=== PATIENT | male | born 1995 | race Caucasian/White ===

== ENCOUNTER 2019-03-22 12:20 | Emergency (ER) | payer MEDICAID, SELFPAY ==
[2019-03-22 12:21] VITALS: BP 165/106; PULSE 109; RESP 16; TEMP 36.6; O2SAT 99; BMI 29.8
--- NOTE | 2019-03-22 12:58 | CT_ITS ---
STUDY: CT BRAIN WITHOUT CONTRAST REASON FOR EXAM: Male, 23 years old. Injury to the right side of the skull. RADIATION DOSAGE (If Supplied By Facility): CTDIvol = ( 44.99 ) mGy, DLP = ( 829.85 ) mGycm TECHNIQUE: Transaxial CT imaging of the brain was performed without administration of intravenous contrast material. Individualized dose optimization techniques were used for this CT. COMPARISON: No relevant priors. FINDINGS: Normal soft tissue structures. Normal calvarium. Normal size ventricles and extra-axial spaces for the patient's age. Normal white matter tracts of the cerebral hemispheres. Normal basal ganglia and thalami. Normal brainstem. Normal cerebellum. There is no intracranial hemorrhage. There are no findings of an acute ischemic infarction. Normal visualized paranasal sinuses. CT/Brain/Head without Contrast IMPRESSION: Normal unenhanced CT scan of the brain. Electronically Signed: Yann Allen, at 13:26 EDT , Service support ,
--- NOTE | 2019-03-22 13:04 | ED.VIS.GEN ---
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 [employer], indicates he was in the shower yesterday inadvertently stood up suddenly struck his head against a ceramic rack in the shower, he had no LOC he had no change in vision no numbness weakness paresthesias he has persistent complaints of head pain where he struck this rack no other complaints no past history Past Medical History - Allergies and Home Meds Allergies/Adverse Reactions: Allergies No Known Allergies Allergy (Verified 03/22/19 12:23) Primary Care Physician: Anderson Cabezas [NON-STAFF] - NOT,KADE [NON-STAFF] - Past Medical History: - Smoking Status: Never smoker Review of Systems ROS: - Denies a past history General: Reports: - - Head injury only. Denies: Chills, Fever, Sweats Eyes: Denies: Visual changes - bilaterally, Diplopia ENT: Denies: Rhinorrhea, Sore throat Cardiovascular: Denies: Chest pain, Palpitations Respiratory: Denies: Dyspnea, Cough, Dyspnea on exertion Gastrointestinal: Denies: Abdominal pain, Nausea, Vomiting, Diarrhea, Melena, Hematochezia Genitourinary: Denies: Dysuria, Hematuria, Frequency Musculoskeletal: Denies: Back pain, Extremity Pain Skin: Denies: Rash, Wounds Neurological: Denies: Headache, Weakness, Numbness Physical Exam Vital Signs/Narrative: Vital Signs Temp Pulse Resp BP Pulse Ox 03/22/19 12:21 97.8 F 109 H 16 165/106 H 99 General: Well nourished, Well developed, No Acute Distress Head: Normocephalic, - - To the top parietal right area there is about an area fingertip that he complains of discomfort to there is no crepitus subcu air the rest of the head exam HEENT exam neck exam neurologic exam in general medical exam are entirely unremarkable his gait strong steady and stable he is awake and alert his mental functioning is normal his NIH is 0 his GCS is 15 Eyes: Perrl, EOMI ENT: Moist mucous membranes, No rhinorrhea Neck: Supple, Nontender Cardiovascular: Regular rate, Regular rhythm, No murmurs Respiratory: No distress, CTA bilaterally, Chest nontender Abdomen: Soft, Nontender, Nondistended, Normal bowel sounds Back: Nontender, Normal Inspection Extremities: Nontender, No edema Skin: Normal color, No rash Neurological: Alert, Oriented x3, Cranial nerves II-XII grossly intact, Normal Strength, Normal Sensation Psychological: Normal affect, Normal Mood Diagnostic/Tx/Re-eval - Medical Decision Making Long conversation with the patient we discussed his physical findings his history we discussed brain CT imaging and the recommendations of experts given the physical exam he however indicates he would prefer to have brain CT imaging sure everything is okay as he is undergoing college tests and he is studying neurologic disorders and conditions CT imaging head CT is unremarkable explained this to him explain the concept of concussion and he will follow head injury instruction sheets Tylenol Motrin for the pain follow-up with his outpatient providers Home stable final impression head injury ED Disposition - Plan for ED Patient: Diagnosis: Head injury Instructions: CONCUSSION, No Wake Up, HEAD INJURY, No Wake-Up (Adult) Prescriptions: Naproxen [Naprosyn] 500 mg PO BID PRN #20 tab Prescription Printed Referrals: NOT,DEFINED [NON-STAFF] - Anderson Cabezas [NON-STAFF] -
== END 2019-03-22 14:27 | disposition home or self-care (01) ==
PROVIDERS: Emergency Provider Emergency Medicine
DX: S09.90XA Unspecified injury of head, initial encounter (principal); R40.2410 Glasgow coma scale score 13-15, unspecified time; W22.8XXA Striking against or struck by other objects, initial encounter; Y93.E1 Activity, personal bathing and showering; Y92.214 College as the place of occurrence of the external cause
CPT/HCPCS: 70450; 99282